=== PATIENT | male | born 1965 | race Hispanic/Latino ===

== ENCOUNTER 2021-12-23 17:28 | Emergency (ER) | payer SELFPAY ==
[2021-12-23] MEDS ORDERED: predniSONE 20 MG TAB ONE (18:10)
== END 2021-12-23 19:41 | disposition home or self-care (01) ==
LOC: CSHERS 17:28
DX: T54.2X1A Toxic effect of corrosive acids and acid-like substances, accidental (unintentional), initial encounter (principal)
CPT/HCPCS: 71045; 93005; 94640; J7512; J7620